=== PATIENT | male | born 1980 | race Caucasian/White ===

== ENCOUNTER 2017-08-02 17:56 | Emergency (ER) | payer MEDICAID, OTHER ==
[~2017-08-02] VITALS: Ht 188 cm; Wt 80.0 kg
[2017-08-02 17:59] VITALS: BP 122/72; PULSE 104; RESP 18; TEMP 98.5; O2SAT 97
--- NOTE | 2017-08-02 18:36 | PD ---
HPI . Rash Chief Complaint: Skin Problem Time Seen by Provider: 18:27 Travel History International Travel<30 days: No Contact w/Intl Traveler<30days: No History of Present Illness HPI This patient presents with a chief complaint of a painful rash. Onset was 2 days ago. It started on his lower legs and is spreading. He describes it as a burning discomfort. He rates the pain 7/10. Pain is exacerbated by touching it and by standing. Nothing really relieves it. He states that he was seen at an outside facility yesterday for same. He states that he was told that he had a bacterial infection in the skin but that he and his provider exchanged words and he ended up leaving the facility without a prescription. He reports that the rash has become much more severe since last night. He states that last night it was just scattered spots on the lower extremities. Now his lower extremities are almost completely red and he has scattered spots elsewhere all over his body. He denies any systemic complaints such as fever, headache, nausea. He does not know what the etiology of the rash daily. PFSH Past Medical History Diminished Hearing: No Tetanus Vaccination: Unknown Social History Alcohol Use: Yes (3-4 BEERS A DAY) Tobacco Use: Yes (1PPD) Substance Use: No Allergies-Medications (Allergen,Severity, Reaction): Coded Allergies: No Known Allergies (Verified , 05/05/09) Reported Meds & Prescriptions Reported Meds & Active Scripts Active Review of Systems Except as stated in HPI: all other systems reviewed are Neg General / Constitutional: No: Fever, Chills Respiratory: No: Shortness of Breath Gastrointestinal: No: Nausea, Vomiting Skin: Positive Rash, Positive Change in Pigmentation, Positive Other (burning pain) Physical Exam Narrative Vital Signs Date Time Temp Pulse Resp B/P (MAP) Pulse Ox O2 Delivery O2 Flow Rate FiO2 08/02/17 17:59 98.5 104 18 122/72 (89) 97 GENERAL: Awake and alert and in no acute distress. He SKIN: warm/dry. The skin of the lower legs is bright red with an almost confluent rash. It seems a bit raised. The rest of his skin has nonblanching petechial rash. The skin remains intact. HEAD: Normocephalic. Atraumatic. EYES: Pupils equal and round. No scleral icterus. No injection or drainage. ENT: No nasal bleeding or discharge. Mucous membranes pink and moist. NECK: Trachea midline. Full range of motion without pain.. CARDIOVASCULAR: Regular rate and rhythm. RESPIRATORY: No accessory muscle use. MUSCULOSKELETAL: No obvious deformities. NEUROLOGICAL: Awake and alert. No obvious cranial nerve deficits. Motor grossly within normal limits. Normal speech. PSYCHIATRIC: Appropriate mood and affect; insight and judgment normal. Data Data Last Documented VS Vital Signs Date Time Temp Pulse Resp B/P (MAP) Pulse Ox O2 Delivery O2 Flow Rate FiO2 08/02/17 17:59 98.5 104 18 122/72 (89) 97 MDM Medical Decision Making Medical Screen Exam Complete: Yes Emergency Medical Condition: Yes Differential Diagnosis The differential diagnosis of the skin rash includes but is not limited to allergic urticaria, scabies, insect bites, contact dermatitis Narrative Course This patient presents with a burning rash mainly to the lower extremities. He has a nonblanching petechial rash elsewhere on the body. I have asked for his records from the outside hospital. Catie Workman MD Aug 02, 2017 18:36
--- NOTE | 2017-08-02 18:46 | PD ---
HPI Chief Complaint: Skin Problem Time Seen by Provider: 18:27 Travel History International Travel<30 days: No Contact w/Intl Traveler<30days: No History of Present Illness HPI 36-year-old male here for evaluation of multiple wounds on his hands and legs. Patient reports these wounds have been there for several days and start becoming increasingly more painful and red the last 24 hours. He reports pain is constant, nonradiating, worse with palpation of the wounds. No alleviating factors. Symptoms severity mild. He denies fever, chills, chest pain, shortness breath, nausea, vomiting. He denies IV drug use at the site of the wounds. PFSH Past Medical History Medical History: Denies Significant Hx Diminished Hearing: No Tetanus Vaccination: Unknown Social History Alcohol Use: Yes (3-4 BEERS A DAY) Tobacco Use: Yes (1PPD) Substance Use: No Allergies-Medications (Allergen,Severity, Reaction): Coded Allergies: No Known Allergies (Verified , 05/05/09) Reported Meds & Prescriptions Reported Meds & Active Scripts Active Review of Systems Except as stated in HPI: all other systems reviewed are Neg General / Constitutional: No: Fever Physical Exam Narrative GENERAL: Alert male disheveled appearing sleeping comfortably on stretcher. SKIN: Focused skin assessment warm/dry. Numerous small shallow lesions with scabs over the dorsal aspect of the hands and forearms, lower extremities. There is mild erythema at the site of each wound without induration, fluctuance , lymphangitis. HEAD: Normocephalic. EYES: No scleral icterus. No injection or drainage. NECK: Supple, trachea midline. No JVD or lymphadenopathy. CARDIOVASCULAR: Regular rate and rhythm without murmurs, gallops, or rubs. RESPIRATORY: Breath sounds equal bilaterally. No accessory muscle use. GASTROINTESTINAL: Abdomen soft, non-tender, nondistended. MUSCULOSKELETAL: No cyanosis, or edema. BACK: Nontender without obvious deformity. No CVA tenderness. Data Data Last Documented VS Vital Signs Date Time Temp Pulse Resp B/P (MAP) Pulse Ox O2 Delivery O2 Flow Rate FiO2 08/02/17 18:37 16 08/02/17 17:59 98.5 104 122/72 (89) 97 MDM Medical Decision Making Medical Screen Exam Complete: Yes Emergency Medical Condition: Yes Differential Diagnosis Wound infection, abscess, cellulitis Narrative Course 36-year-old male here for evaluation of multiple painful abrasions and wounds. He denies injury to the site. He is unsure of when the wounds originated but believes they started approximately less than a week ago. Over the last 24 hours he reports that became increasingly more painful and red. He denies drainage from the wounds. He denies IV drug use. On exam he has multiple shallow abrasions that appear mildly infected. Patient has no systemic signs of infection. His vital signs are stable. He was mildly tachycardic on arrival but recheck of the heart reveal a rate in the low 90s. Patient will be treated with antibiotics and instructed to follow-up with the [facility] for recheck. Return precautions discussed. Diagnosis Primary Impression: Wound infection Referrals: [facility] Additional Instructions: Take the antibiotics as prescribed. Keep the areas clean by washing with soap and water daily. Follow-up with the [facility] for recheck Scripts Cephalexin (Keflex) 500 Mg Cap 500 MG PO Q6H for Infection for 10 Days, #40 CAP 0 Refills Prov: Brenda Glasgow 08/02/17 Sulfamethoxazole-Trimethoprim (Bactrim DS) 800-160 Mg Tab 1 TAB PO BID for Infection, #20 TAB 0 Refills Prov: Brenda Glasgow 08/02/17 Disposition: 01 DISCHARGE HOME Condition: Stable Brenda Glasgow Aug 02, 2017 18:46
[2017-08-02] MEDS ORDERED: CEPH-460 PO (19:03)
[2017-08-02] MEDS ORDERED: BACT800T5 PO (19:03)
--- NOTE | 2017-08-02 19:03 | PD ---
Physical Exam Date Seen by Provider: Aug 02, 2017 Narrative This patient presents with a skin rash. Onset was about 2 days ago. Data Data Last Documented VS Vital Signs Date Time Temp Pulse Resp B/P (MAP) Pulse Ox O2 Delivery O2 Flow Rate FiO2 08/02/17 18:37 16 08/02/17 17:59 98.5 104 122/72 (89) 97 MDM Supervised Visit with THEO: Yes Narrative Course I, Dr. Workman, have reviewed the advance practice practitioner's documentation and am in agreement, met with the patient face to face, made the diagnosis, and the medical decision making was done by me. *My assessment and Findings: He has diffuse, scattered lesions which are about the size of a dime. There are raised. They are slightly erythematous. Please see Brenda Glasgow NP's note for results of laboratory and radiographic evaluation, ED course, final diagnosis and disposition Diagnosis Primary Impression: Wound infection Referrals: [facility] Additional Instruction: Take the antibiotics as prescribed. Keep the areas clean by washing with soap and water daily. Follow-up with the [facility] for recheck Disposition: 01 DISCHARGE HOME Condition: Stable Catie Workman MD Aug 02, 2017 19:03
[2017-08-02] MEDS ORDERED: CEPHALEXIN MONOHYDRATE 500 MG CAP PO ONE (19:15)
[2017-08-02] MEDS ORDERED: SULFAMETHOXAZOLE-TRIMETHOPRIM DS 800-160 MG TAB PO ONE (19:15)
[2017-08-02 19:24] VITALS: BP 120/78
== END 2017-08-02 19:43 | disposition home or self-care (01) ==
LOC: NEPD 17:56
DX: R21 Rash and other nonspecific skin eruption (principal); F17.200 Nicotine dependence, unspecified, uncomplicated
CPT/HCPCS: 99284